=== PATIENT | female | born 2000 | race Hispanic/Latino ===

== ENCOUNTER 2022-06-21 09:31 | Emergency (ER) | payer OTHER ==
[2022-06-21] MEDS ORDERED: LIDOCAINE 1% MPF 5 ML VIAL ONE (10:28)
[2022-06-21] MEDS ORDERED: HYDROCODONE/APAP 5/325 MG TAB ONE (10:28)
[2022-06-21] MEDS ORDERED: BUPIVACAINE 0.5% PF 10 ML VIAL ONE (10:28)
--- NOTE | 2022-06-21 10:39 | RAD REPORT ---
EXAM DESCRIPTION: RAD - Finger-Thumb Left - 06/21/2022 10:12 am CLINICAL HISTORY: Thumb pain FINDINGS: No fracture or dislocation seen. A radiopaque foreign body not noted
--- NOTE | 2022-06-21 11:28 | ER ---
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 Laceration noted to distal left thumb, moderate bleeding noted, gauze and saline applied to control bleeding. 09:39 Acuity: ETHAN 3 aa5 09:39 Method Of Arrival: Ambulatory aa5 09:39 Coronavirus screen: At this time, the client does not indicate any symptoms associated aa5 with coronavirus-19. 09:39 Ebola Screen: Patient denies travel to an Ebola-affected area in the 21 days before aa5 illness onset. Complicating Factors: There are no complicating factors for this patient. Initial Sepsis Screen: Does the patient meet any 2 criteria? HR > 90 bpm. Does the patient have a suspected source of infection? No. Patient's initial sepsis screen is negative. Risk Assessment: Do you want to hurt yourself or someone else? Patient reports no desire to harm self or others. Onset of symptoms was June 2022. FIRE PREVENTION CHIEF: 10:00 LMP N/A - control method eh3 Historical: - Allergies: 09:39 Benadryl; aa5 - PMHx: 09:39 Asthma; aa5 - PSHx: 09:39 None; aa5 - Immunization history:: Last tetanus immunization: unknown. - Social history:: Smoking status: Reported history of juuling and/or vaping. Screenin:00 [facility] ED Fall Risk Assessment (Adult) Score/Fall Risk Level 0 - 2 = Low Risk. Abuse eh3 screen: Denies threats or abuse. Denies injuries from another. Nutritional screening: No deficits noted. Tuberculosis screening: No symptoms or risk factors identified. Assessment: 10:00 General: Appears in no apparent distress. uncomfortable, Behavior is calm, cooperative, eh3 appropriate for age. Pain: Complains of pain in dorsal aspect of distal phalanx of left index finger. Neuro: Level of Consciousness is awake, alert, obeys commands, Oriented to person, place, time, situation. Cardiovascular: Capillary refill < 3 seconds Patient's skin is warm and dry. Respiratory: Airway is patent Respiratory effort is even, unlabored, Respiratory pattern is regular, symmetrical. GI: Abdomen is round non-distended. : No signs and/or symptoms were reported regarding the genitourinary system. EENT: No signs and/or symptoms were reported regarding the EENT system. Derm: Skin is pink, warm \\T\\ dry. Musculoskeletal: Circulation, motion, and sensation intact. Injury Description: Laceration is clean, 0.5 to 2.5 cm long, bleeding moderately, was sustained 30-60 minutes ago. 11:00 Reassessment: Patient appears in no apparent distress at this time. Patient and/or eh3 family updated on plan of care and expected duration. Pain level reassessed. Patient is alert, oriented x 3, equal unlabored respirations, skin warm/dry/pink. Vital Signs: 09:39 BP 126 / 96; Pulse 101; Resp 16 S; Temp 98(TE); Pulse Ox 97% on R/A; Weight 58.97 kg aa5 (R); Height 5 ft. 2 in. (R); 09:39 Body Mass Index 23.78 (58.97 kg, 157.48 cm) aa5 ED Course: 09:32 Patient arrived in ED. am2 09:33 Kaylene Hampton FNP-C [facility]. kb 09:33 Joni Howe MD is Attending Physician. kb 09:39 Arm band placed on. aa5 09:40 Triage completed. aa5 10:00 Patient has correct armband on for positive identification. Bed in low position. Call eh3 light in reach. Side rails up X2. Adult w/ patient. 10:06 Elizabeth Sebastian, SILVINA is Primary Nurse. eh3 10:14 Finger-Thumb Left In Process Unspecified. EDMS 11:35 No provider procedures requiring assistance completed. Patient did not have IV access eh3 during this emergency room visit. Administered Medications: 10:15 Drug: HYDROcodone-acetaminophen PO 5 mg-325 mg 1 tabs Route: PO; eh3 11:24 Follow up: Response: Pain is decreased eh3 10:45 Drug: Bupivacaine Infiltration (0.5 %) 1 vials {Note: administered by jeffrey Mckeon} Volume: 10 ml; Route: Infiltration; 11:26 Follow up: Response: No adverse reaction 3 10:45 Drug: Lidocaine Infiltration (1 %) 1 vials {Note: administered by jeffrey Mckeon.} Volume: 5 ml; Route: Infiltration; 11:25 Follow up: Response: No adverse reaction 3 Medication: 11:35 VIS not applicable for this client. eh3 Outcome: 11:27 Discharge ordered by . gypsy 11:35 Discharged to home ambulatory, with friend. eh3 11:35 Condition: stable 11:35 Discharge instructions given to patient, Instructed on discharge instructions, follow up and referral plans. Demonstrated understanding of instructions, follow-up care. 11:35 Patient left the ED. 3 Signatures: Dispatcher [employer] EDNM Kaylene Hampton FNP-C FNP-Ckb Calderon, Audri, RN RN aa5 Anabelle Love am2 Elizabeth Sebastian RN RN eh3
--- NOTE | 2022-06-21 11:28 | EDPHYS ---
Physician Documentation [facility] Name: Nguyen Alexander Age: 21 yrs Sex: Female : 2000 Arrival Date: 06/21/2022 Time: 09:31 Bed 17 Private MD: ED Physician Joni Howe HPI: 06/21 09:58 This 21 yrs old Female presents to ER via Ambulatory with complaints of kb Laceration - finger. 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 The injury was accidental. The laceration(s) is(are) located on the dorsal aspect of distal phalanx of left thumb. Onset: The symptoms/episode began/occurred just prior to arrival. Associated signs and symptoms: The patient has no apparent associated signs or symptoms. The patient has not experienced similar symptoms in the past. The patient has not recently seen a physician. EPIC AMBULATORY ANALYSTS: 10:00 LMP N/A - control method eh3 Historical: - Allergies: 09:39 Benadryl; aa5 - PMHx: 09:39 Asthma; aa5 - PSHx: 09:39 None; aa5 - Immunization history:: Last tetanus immunization: unknown. - Social history:: Smoking status: Reported history of juuling and/or vaping. ROS: 09:57 Constitutional: Negative for fever, chills, and weight loss. kb 09:57 Skin: Positive for laceration(s), of the dorsal aspect of distal phalanx of left thumb. 09:57 All other systems are negative. Exam: 09:57 Constitutional: This is a well developed, well nourished patient who is awake, alert, kb and in no acute distress. Head/Face: Normocephalic, atraumatic. ENT: Moist Mucous membranes Cardiovascular: Regular rate and rhythm with a normal S1 and S2. No gallops, murmurs, or rubs. No pulse deficits. Respiratory: Respirations even and unlabored. No increased work of breathing. Talking in full sentences MS/ Extremity: Pulses equal, no cyanosis. Neurovascular intact. Full, normal range of motion. Neuro: Awake and alert, GCS 15, oriented to person, place, time, and situation. Moves all extremities. Normal gait. 09:57 Skin: injury, laceration(s), the wound is approximately 2 cm(s), of the dorsal aspect of distal phalanx of left thumb, that can be described as clean, no foreign body, linear, with moderate bleeding. Vital Signs: 09:39 BP 126 / 96; Pulse 101; Resp 16 S; Temp 98(TE); Pulse Ox 97% on R/A; Weight 58.97 kg aa5 (R); Height 5 ft. 2 in. (R); 09:39 Body Mass Index 23.78 (58.97 kg, 157.48 cm) aa5 Procedures: 10:48 Nerve block: (digital) of palmar aspect of proximal phalanx of left thumb and Left kb first web space Medication: Lidocaine 1% without epinephrine Marcaine 0.5%, Amount: 4 mls were injected, Effect: the patient has resolution of the pain, Set up for procedure. Performed by Kaylene DE LA PAZ Patient tolerated well. Laceration: 11:25 Wound Repair of 2cm ( 0.8in ) subcutaneous laceration to dorsal aspect of distal kb phalanx of left thumb and palmar aspect of proximal phalanx of left thumb. Irregularly shaped.. Skin/tissue flap noted.. Distal neuro/vascular/tendon intact. Anesthesia: Digital block administered with 1% lidocaine. Wound prep: Extensive cleansing with hibiclenz by me, Wound irrigation with saline by me. Skin closed with 6 5-0 Prolene using simple sutures and sterile technique. Patient tolerated well. MDM: 09:33 Patient medically screened. kb 09:57 Differential diagnosis: fracture, laceration. Data reviewed: vital signs, nurses notes. kb 10:49 Differential diagnosis: superficial laceration, tendon injury, vascular injury. kb 11:26 Counseling: I had a detailed discussion with the patient and/or guardian regarding: the historical points, exam findings, and any diagnostic results supporting the discharge/admit diagnosis, radiology results, the need for outpatient follow up, a family practitioner, to return to the emergency department if symptoms worsen or persist or if there are any questions or concerns that arise at home. 06/21 10:13 Order name: Finger-Thumb Left; Complete Time: 10:40 EDMS 06/21 09:38 Order name: Dressing - Wound; Complete Time: 11:26 kb 06/21 09:38 Order name: Gloves, Sterile; Complete Time: 10:36 kb 06/21 09:38 Order name: Prolene, Sutures; Complete Time: 10:36 kb 06/21 09:38 Order name: Setup Suture Tray; Complete Time: 10:36 kb Administered Medications: 10:15 Drug: HYDROcodone-acetaminophen PO 5 mg-325 mg 1 tabs Route: PO; eh3 11:24 Follow up: Response: Pain is decreased eh3 10:45 Drug: Bupivacaine Infiltration (0.5 %) 1 vials {Note: administered by jeffrey Mckeon} Volume: 10 ml; Route: Infiltration; 11:26 Follow up: Response: No adverse reaction eh3 10:45 Drug: Lidocaine Infiltration (1 %) 1 vials {Note: administered by jeffrey Mckeon} Volume: 5 ml; Route: Infiltration; 11:25 Follow up: Response: No adverse reaction eh3 Disposition: 12:49 Co-signature as Attending Physician, Joni Howe MD I reviewed the patient's care rn provided by the Advanced Practice Provider and agree with the diagnosis and treatment plan. Disposition Summary: 06/21/22 11:27 Discharge Ordered Location: Home kb Condition: Stable kb Diagnosis - Laceration without foreign body of left thumb with damage to nail, initial encounterkb Followup: kb - With: Emergency Department - When: As needed - Reason: Worsening of condition Followup: kb - With: Private Physician - When: 2 - 3 days - Reason: Recheck today's complaints, Continuance of care, Re-evaluation by your physician Discharge Instructions: - Discharge Summary Sheet kb - Laceration Care, Adult, [id number] kb Forms: - Medication Reconciliation Form kb - Thank You Letter kb - Antibiotic Education kb - Prescription Opioid Use kb Signatures: Dispatcher [employer] EDMT Kaylene Hampton FNP-C FNP-CkJoni Rivas MD MD rn Calderon, Audri RN RN aa5 Elizabeth Sebastian RN RN eh3 Corrections: (The following items were deleted from the chart) 10:13 09:39 Hand Left 3 View+RAD.[email or web address].BRZ ordered. EDMT EDMS 10:49 09:57 Skin: Positive for laceration(s), of the dorsal aspect of distal phalanx of left kb index finger, kb 10:49 09:57 Skin: injury, laceration(s), the wound is approximately 2 cm(s), of the dorsal kb aspect of distal phalanx of left index finger, that can be described as clean, no foreign body, linear, with moderate bleeding, kb 10:49 09:58 The laceration(s) is(are) located on the dorsal aspect of distal phalanx of left kb index finger, kb
[2022-06-21 11:46] VITALS: BP 126/96; TEMP 98; O2SAT 97
== END 2022-06-21 11:35 | disposition home or self-care (01) ==
LOC: ER 09:31
PROC: 0HQGXZZ Repair Left Hand Skin, External Approach (ICD-10-PCS; principal; 2022-06-21)
DX: S61.112A Laceration without foreign body of left thumb with damage to nail, initial encounter (principal); Z88.8 Allergy status to other drugs, medicaments and biological substances
CPT/HCPCS: 73140; 64450; 99283; 12001; J2001